=== PATIENT | female | born 1960 | race Caucasian/White ===

== ENCOUNTER 2018-05-13 11:19 | Inpatient (IN) | payer MEDICAID, OTHER ==
[~2018-05-13] VITALS: Ht 170.2 cm; Wt 92.5 kg
[2018-05-13] MEDS ORDERED: LOSA50TA20 MT (11:36)
[2018-05-13] MEDS ORDERED: ONDANSETRON HCL 4MG/2ML INJ IV STA (12:10)
[2018-05-13] MEDS ORDERED: SODIUM CHLORIDE 0.9% 1,000 ML IV ONE (12:10)
[2018-05-13 13:14] LABS: CHLORIDE 107 mEq/L (98-107)
[2018-05-13] MEDS ORDERED: POTASSIUM CHLORIDE 20MEQ TABLET SR PO ONE ×2 (13:15→13:30)
[2018-05-13 13:17] LABS: BASOPHILS % 0.9 % (0.0-2.0); EOSINOPHILS % 1.8 % (0.0-5.0); HEMOGLOBIN. 12.4 g/dL (12.0-16.0); LYMPHOCYTES % 32.4 % (20.0-50.0); MEAN CORPUSCULAR HEMOGLOBIN 29.9 pg (28.0-32.0); MEAN CORPUSCULAR VOLUME 91.8 fL (81.0-99.0); NEUTROPHILS % 58.9 % (40.0-76.0); PLATELET 294 x1000/uL (130-400); RED BLOOD CELL COUNT 4.14 mill/uL (4.2-5.4); RED CELL DISTRIBUTION WIDTH 14.7 % (11.6-14.6)
[2018-05-13 13:18] LABS: ETHANOL BLOOD < 10 mg/dL; PARTIAL THROMBOPLASTIN TIME 21.1 sec (23.4-31.0)
[2018-05-13 13:58] LABS: CLARITY URINE CLEAR (CLEAR); COLOR URINE YELLOW (YELLOW); KETONES URINE NEGATIVE (NEGATIVE); LEUKOCYTE ESTERASE URINE NEGATIVE (NEGATIVE); NITRITE URINE NEGATIVE (NEGATIVE); OCCULT BLOOD URINE NEGATIVE (NEGATIVE); PH URINE 7.5 (4.5-8.0); PROTEIN URINE NEGATIVE (NEGATIVE); SPECIFIC GRAVITY URINE 1.012 (1.005-1.030); UROBILINOGEN URINE 0.2 E.U./dL (0.2-1.0)
[2018-05-13] MEDS ORDERED: PANTOPRAZOLE SODIUM 40 MG/VIAL IV ONE (14:15)
[2018-05-13 14:26] LABS: *AMPHETAMINES SCREEN URINE NEGATIVE (NEGATIVE); *BARBITURATES SCREEN URINE NEGATIVE (NEGATIVE); *BENZODIAZEPINES SCREEN URINE NEGATIVE (NEGATIVE); *COCAINE SCREEN URINE NEGATIVE (NEGATIVE)
[2018-05-13 14:27] LABS: CANNABINOID URINE SCREEN PRESUMTIVE POSITIVE (NEGATIVE); METHADONE URINE SCREEN NEGATIVE (NEGATIVE); OPIATES URINE SCREEN NEGATIVE (NEGATIVE); PHENCYCLIDINE URINE SCREEN NEGATIVE (NEGATIVE)
[2018-05-13 17:05] LABS: HEMATOCRIT 36.2 % (36.0-48.0); HEMOGLOBIN 11.7 g/dL (12.0-16.0)
[2018-05-13 17:28] VITALS: BP 127/80
[2018-05-13] MEDS ORDERED: MAGNESIUM/ALUMINUM HYDROXIDE/SIMETHICONE 30ML UDC PO PRN (17:30)
[2018-05-13] MEDS ORDERED: CLONIDINE 0.1MG TABLET PO PRN (17:30)
[2018-05-13] MEDS ORDERED: DIPHENHYDRAMINE 50MG/ML VIAL IV PRN (17:30)
[2018-05-13] MEDS ORDERED: IPRATROPIUM/ALBUTEROL 0.5-3(2.5)MG/3ML NEB INH PRN (17:30)
[2018-05-13] MEDS ORDERED: ONDANSETRON HCL 4MG/2ML INJ IV PRN (17:30)
[2018-05-13] MEDS ORDERED: GUAIFENESIN 200MG/10ML SUGAR FREE UDC PO PRN (17:30)
[2018-05-13] MEDS ORDERED: LOSA1TAB37 MT (17:50)
[2018-05-13] MEDS ORDERED: ASPI-964 PO (17:52)
[2018-05-13] MEDS ORDERED: NAPR220T66 PO (17:55)
[2018-05-13 17:56] VITALS: BP 127/80
[2018-05-13 18:40] LABS: PHOSPHORUS 2.5 mg/dL (2.5-4.9)
[2018-05-13] MEDS ORDERED: DEXTROSE 50% WATER 50ML SYRINGE IV PRN (18:45)
[2018-05-13 20:00] VITALS: BP 138/80
[2018-05-13] MEDS: BLOOD SUGAR DIAGNOSTIC STRIP TEST SCH (21:00)
[2018-05-13] MEDS: INSULIN LISPRO 100 UNITS/ML SUBCUT SCH (21:00)
[2018-05-13] MEDS: SODIUM CHLORIDE 0.9% 1,000 ML IV SCH (23:00)
[2018-05-13 23:05] LABS: CREATINE KINASE 102 IU/L (26-192)
[2018-05-14] VITALS (7 sets, daily range): BP systolic 121–144; BP diastolic 67–92
[2018-05-14] MEDS: INSULIN LISPRO 100 UNITS/ML SUBCUT SCH ×4 (07:28→21:00)
[2018-05-14] MEDS: BLOOD SUGAR DIAGNOSTIC STRIP TEST SCH ×4 (07:28→21:00)
[2018-05-14 07:33] LABS: BASOPHILS % 1.3 % (0.0-2.0); EOSINOPHILS % 0.4 % (0.0-5.0); HEMATOCRIT. 33.6 % (36.0-48.0); HEMOGLOBIN. 11.2 g/dL (12.0-16.0); MEAN CORPUSCULAR HEMOGLOBIN 30.6 pg (28.0-32.0); MEAN CORPUSCULAR VOLUME 91.7 fL (81.0-99.0); MEAN PLATELET VOLUME 10.2 fl (7.4-10.4); MONOCYTES % 6.9 % (2.0-8.0); NEUTROPHILS % 65.4 % (40.0-76.0); PLATELET 287 x1000/uL (130-400); RED BLOOD CELL COUNT 3.67 mill/uL (4.2-5.4); RED CELL DISTRIBUTION WIDTH 14.5 % (11.6-14.6)
[2018-05-14 07:44] LABS: CHLORIDE 111 mEq/L (98-107)
[2018-05-14 07:54] LABS: LDL CHOLESTEROL 78 mg/dL (5-100)
[2018-05-14 07:55] LABS: CREATINE KINASE 85 IU/L (26-192); HDL CHOLESTEROL 79 mg/dL (40-59)
[2018-05-14] MEDS: SODIUM CHLORIDE 0.9% 1,000 ML IV SCH (11:57)
[2018-05-14] MEDS ORDERED: DIATR MEGLU/DIATRIZOATE SOLN 30ML PO NR (13:00)
[2018-05-15] VITALS (8 sets, daily range): BP systolic 108–161; BP diastolic 59–91
[2018-05-15] MEDS: ACETAMINOPHEN 325MG TABLET PO PRN ×2 (00:36→20:35)
[2018-05-15] MEDS: SODIUM CHLORIDE 0.9% 1,000 ML IV SCH (00:37)
[2018-05-15] MEDS: BLOOD SUGAR DIAGNOSTIC STRIP TEST SCH ×3 (06:29→21:27)
[2018-05-15] MEDS: INSULIN LISPRO 100 UNITS/ML SUBCUT SCH ×3 (06:54→21:00)
[2018-05-15] MEDS ORDERED: DEXT 5%/0.45% NACL 1000ML 1,000 ML IV SCH (13:15)
[2018-05-15] MEDS: METRONIDAZOLE 500 MG PREMIX 100 ML IV SCH ×2 (14:26→21:27)
[2018-05-15] MEDS ORDERED: LEVOFLOXACIN 500MG PREMIX 100 ML IV SCH (15:00)
[2018-05-15] MEDS: HYDROCODONE/ACETAMINOPHEN 5/325MG TABLET PO PRN (21:26)
[2018-05-16 04:00] VITALS: BP 139/81
[2018-05-16] MEDS: METRONIDAZOLE 500 MG PREMIX 100 ML IV SCH (05:46)
[2018-05-16] MEDS: BLOOD SUGAR DIAGNOSTIC STRIP TEST SCH (05:47)
[2018-05-16] MEDS: INSULIN LISPRO 100 UNITS/ML SUBCUT SCH (05:55)
[2018-05-16] MEDS: HYDROCODONE/ACETAMINOPHEN 5/325MG TABLET PO PRN (06:53)
[2018-05-16 08:00] VITALS: BP 140/89
[2018-05-16] MEDS ORDERED: LEVOFLOXACIN 250MG TABLET PO SCH (08:00)
[2018-05-16 08:14] VITALS: BP 140/89
== END 2018-05-16 10:40 | disposition home or self-care (01) | DRG 378 ==
LOC: ER 11:19 → 8WST 13:25 → EDBEDREQ 13:27 → EDBEDREQSVC 13:27 → ENRESERV 15:23
PROVIDERS: ADMIT Internal Medicine; ATTEND Internal Medicine
DX: K57.33 Diverticulitis of large intestine without perforation or abscess with bleeding (principal); E44.1 Mild protein-calorie malnutrition; K57.31 Diverticulosis of large intestine without perforation or abscess with bleeding; D50.9 Iron deficiency anemia, unspecified; E66.01 Morbid (severe) obesity due to excess calories; E73.9 Lactose intolerance, unspecified; E87.6 Hypokalemia; R73.9 Hyperglycemia, unspecified; F12.90 Cannabis use, unspecified, uncomplicated; E87.8 Other disorders of electrolyte and fluid balance, not elsewhere classified; K64.4 Residual hemorrhoidal skin tags; I10 Essential (primary) hypertension; Z87.891 Personal history of nicotine dependence; Z98.891 History of uterine scar from previous surgery; Z90.81 Acquired absence of spleen; Z68.32 Body mass index [BMI] 32.0-32.9, adult; Z71.3 Dietary counseling and surveillance
CPT/HCPCS: 36415; 71045; 74176; 80061; 80305; 82270; 82550; 82962; 83036; 83735; 83880; 84100; 84443; 84484; 85014; 85018; 86850; 86900; 93005; 93970; 96361; 96365; 96375; 99285; C9113; J1956; J3490; J7030; Q9963

== ENCOUNTER 2020-11-15 13:25 | Emergency (ER) | payer OTHER, SELFPAY ==
[~2020-11-15] VITALS: Ht 167.6 cm; Wt 104.0 kg
[~2020-11-15 13:25] MED LIST: ASPI-964 PO; LOSA1TAB37 MT
[2020-11-15 14:08] VITALS: BP 154/99
== END 2020-11-15 16:59 | disposition home or self-care (01) ==
LOC: ER 13:25
DX: U07.1 COVID-19 (principal)
CPT/HCPCS: 99283; C9803; U0003; U0005